=== PATIENT | female | born 1965 | race Two or more races ===

== ENCOUNTER 2018-07-28 16:07 | Emergency (ER) | payer SELFPAY ==
[~2018-07-28] VITALS: Ht 162.6 cm; Wt 72.6 kg
[2018-07-28] MEDS ORDERED: Morphine Sulfate 4mg/ml Inj (IV/IM USE ONLY) IVP ONE ×2 (16:15→18:00)
[2018-07-28] MEDS ORDERED: Ketorolac 30mg Inj IV ONE (16:15)
--- NOTE | 2018-07-28 16:27 | Emergency Room Report ---
History of Present Illness General Chief Complaint: Abdominal Pain Source: Patient Present Illness HPI Mrs. Osborne is a 53-year-old female with history of hypertension who presents with sudden onset of left flank plain. Severe 10/10 sharp pain radiating to left lower quadrant. History of previous cholecystectomy. She stated the pain feels very similar to gallstone pain. She denies fever. She vomited once a few times prior to arrival. Pain does not change with movement or palpation. Sharp persistent pain. Allergies: Uncoded Allergies: PENICILLIN (Allergy, Unknown, 07/28/18) Patient History Limited by: language barrier Past Medical History: HTN Past Surgical History: jenaro Social History: Denies: smoking Reviewed Nursing Documentation: PMH: Agreed; PSxH: Agreed Nursing Documentation-PMH Past Medical History: No History, Except For Hx Hypertension: Yes Hx Gastrointestinal Problems: Yes - gallstone removal Review of Systems Constitutional: Denies: fever, malaise Gastrointestinal: Reports: abdominal pain, nausea, vomiting Musculoskeletal: Reports: back pain All Other Systems: negative except mentioned in HPI Physical Exam Vital Signs Date Time Temp Pulse Resp B/P (MAP) Pulse Ox O2 Delivery O2 Flow Rate FiO2 07/28/18 16:00 98.1 60 20 211/103 98 Room Air Sp02 EP Interpretation: reviewed, normal General Appearance: alert, GCS 15, non-toxic, mild distress - appears in severe pain Head: normocephalic, atraumatic Eyes: bilateral eye normal inspection ENT: hearing grossly normal, normal pharynx, no angioedema, normal voice Neck: full range of motion, supple/symm/no masses Respiratory: chest non-tender, lungs clear, normal breath sounds, speaking full sentences Cardiovascular #1: regular rate, rhythm, no edema Gastrointestinal: normal bowel sounds, non tender, soft, non-distended, no guarding, no rebound Rectal: deferred Genitourinary: normal inspection, no CVA tenderness Musculoskeletal: back normal, gait/station normal, normal range of motion, non- tender, calf tenderness Neurologic: alert, oriented x3, responsive, motor strength/tone normal, sensory intact, speech normal Psychiatric: judgement/insight normal, memory normal, mood/affect normal, no suicidal/homicidal ideation Skin: normal color, no rash, warm/dry, well hydrated Medical Decision Making Diagnostic Impression: Primary Impression: Kidney stone on left side Additional Impression: Renal colic on left side ER Course Mrs. Osborne has kidney stone causing renal colic. Do not see evidence of infection such as fever or abnormal UA. pain free upon dc, small 3 mm stone at UVJ without signs of infection on CT, mild WBC elevation dc'd home Last Vital Signs Date Time Temp Pulse Resp B/P (MAP) Pulse Ox O2 Delivery O2 Flow Rate FiO2 07/28/18 16:00 98.1 60 20 211/103 98 Room Air Status: improved Disposition: HOME, SELF-CARE Condition: Stable Sara Castañeda MD Jul 28, 2018 16:27
[2018-07-28 16:49] LABS: BASOPHILS % (AUTO) 1.3 % (0.0-2.0); EOSINOPHILS % (AUTO) 2.8 % (0.0-3.0); HEMATOCRIT 41.3 % (37.0-47.0); LYMPHOCYTES % (AUTO) 14.6 % (20.0-45.0); MEAN CORPUSCULAR VOLUME 82 FL (80-99); MONOCYTES % (AUTO) 3.5 % (1.0-10.0); NEUTROPHILS % (AUTO) 77.8 % (45.0-75.0); PLATELET COUNT 323 K/UL (150-450); RED BLOOD COUNT 5.02 M/UL (4.20-5.40); RED CELL DISTRIBUTION WIDTH 11.4 % (11.6-14.8); WHITE BLOOD COUNT 12.2 K/UL (4.8-10.8)
[2018-07-28 16:50] LABS: APPEARANCE,URINE CLEAR; BILIRUBIN, URINE NEGATIVE (NEGATIVE); COLOR,URINE PALE YELLOW; GLUCOSE, URINE (UA) NEGATIVE (NEGATIVE); KETONES,URINE NEGATIVE (NEGATIVE); LEUKOCYTE ESTERASE ,URINE NEGATIVE (NEGATIVE); NITRITE,URINE NEGATIVE (NEGATIVE); PH,URINE 8 (4.5-8.0); PROTEIN,URINE NEGATIVE (NEGATIVE); UROBILINOGEN,URINE NORMAL MG/DL (0.0-1.0)
--- NOTE | 2018-07-28 16:56 | Diagnostic Imaging Report ---
Indication: Abdominal pain Technique: Continuous helical transaxial imaging of the abdomen and pelvis was obtained from the lung bases to the pubic symphysis. No intravenous contrast was administered. Coronal 2-D reformats were also obtained. Automatic Exposure Control was utilized. Total Dose length Product (DLP): 824.[address] Dose Index Volume (CTDIvol): 16.82 mGy Comparison: none Findings: The lung bases are clear. Evaluation of solid organs limited on this study done without contrast material. There is mild left hydroureteronephrosis secondary to 3 mm stone at the left UVJ. Mild perinephric stranding noted. There is an additional punctate calculus nonobstructive within the left kidney. The biliary ducts are mildly prominent. The patient has had prior cholecystectomy. There is no free fluid. The appendix is normal. Uterus and urinary bladder appear unremarkable. Few diverticula in the sigmoid colon demonstrated. IMPRESSION: Mild left hydroureteronephrosis secondary to a 3 mm left UVJ stone. Additional tiny nonobstructive stone left kidney. Normal appendix Status post cholecystectomy likely accounting for the dilated biliary ducts. Correlate clinically. Mild diverticulosis of the sigmoid colon. No definite evidence of diverticulitis. The CT scanner at [facility] is accredited by the [employer] and the scans are performed using dose optimization techniques as appropriate to a performed exam including Automatic Exposure control.
[2018-07-28 17:10] LABS: ANION GAP 11 mmol/L (5-15); BLOOD UREA NITROGEN 18 mg/dL (7-18); CALCIUM 9.5 MG/DL (8.5-10.1); CARBON DIOXIDE 25 MMOL/L (21-32); CHLORIDE 106 MMOL/L (98-107); POTASSIUM 3.1 MMOL/L (3.5-5.1); SODIUM 142 MMOL/L (136-145)
[2018-07-28 17:15] LABS: ALANINE AMINOTRANSFERASE 28 U/L (12-78); ALBUMIN 4.1 G/DL (3.4-5.0); ALBUMIN/GLOBULIN RATIO 0.9 (1.0-2.7); ALKALINE PHOSPHATASE 131 U/L (46-116); ASPARTATE AMINO TRANSFERASE 21 U/L (15-37); BILIRUBIN,TOTAL 0.3 MG/DL (0.2-1.0)
[2018-07-28 19:00] VITALS: BP 168/93
[2018-07-28] MEDS ORDERED: PHENERGAN25 M1 ORAL (19:04)
[2018-07-28] MEDS ORDERED: NORCO 5-325 TA1 EACH ORAL (19:04)
[2018-07-28 19:22] VITALS: BP 168/93
== END 2018-07-28 19:22 | disposition home or self-care (01) ==
LOC: EDBD 16:07 → EMR 16:25
DX: N13.2 Hydronephrosis with renal and ureteral calculous obstruction (principal); I10 Essential (primary) hypertension; K57.30 Diverticulosis of large intestine without perforation or abscess without bleeding; Z90.49 Acquired absence of other specified parts of digestive tract; Z88.0 Allergy status to penicillin
CPT/HCPCS: 36415; 74176; 80053; 81003; 83690; 85025; 96361; 96374; 96375; 99284; J1885; J2270; J2405